=== PATIENT | female | born 1995 | race Caucasian/White ===

== ENCOUNTER 2017-03-12 03:14 | Emergency (ER) | payer BC, OTHER ==
[~2017-03-12 03:14] MED LIST: ETON1IMP2
[2017-03-12 03:18] VITALS: TEMP 37.3; Ht 167.6 cm
[2017-03-12] MEDS ORDERED: DEXAMETHASONE SOD INJ 10 MG/ML VIAL PO ONE (03:30)
[2017-03-12] MEDS ORDERED: IBUPROFEN 600 MG TAB PO STA (03:30)
[2017-03-12] MEDS ORDERED: PENI500T2 PO (03:40)
[2017-03-12] MEDS ORDERED: PENICILLIN V POTASSIUM 250 MG TAB PO ONE (03:45)
--- NOTE | 2017-03-12 03:48 | EMERGENCY ROOM VISIT NOTE ---
History First contact with patient: 03:23 Chief Complaint: THROAT PAIN/INJURY Stated Complaint: SEVERE PAIN SWALLOWING,TONGUE SWELLING,FEVER History of Present Illness The patient is a 21 year old female who presents to the Emergency Room with complaints of sore throat with fever for the past day. Tmax 101. Patient denies neck stiffness, dysphagia, headache, cough, congestion, abdominal pain, chest pain, dyspnea. Sister was sick a few weeks ago with mono. Patient works at a [employer]. Review of Systems See HPI for pertinent positives & negatives. A total of 10 systems reviewed and were otherwise negative. Past Medical/Surgical History Migraines Social History Smoking Status: Never Smoker Alcohol Use: none Drug Use: none Marital Status: single Housing Status: lives with family Occupation Status: employed Current/Historical Medications Miscellaneous Medications Etonogestrel (Nexplanon) Physical Exam Vital Signs Date Time Temp Pulse Resp B/P (MAP) Pulse Ox O2 Delivery O2 Flow Rate FiO2 03/12/17 03:18 37.3 96 18 124/80 98 Room Air Physical Exam VITALS: Vitals are noted on the nurse's note and reviewed by myself. Vital signs stable. GENERAL: Pleasant female, in no acute distress, nondiaphoretic, well-developed well-nourished. SKIN: The skin was without rashes, erythema, edema, or bruising. There is no tenting of the skin. Capillary reflex less than 2 seconds. HEAD: Normocephalic atraumatic. EARS: External auditory canals clear, tympanic membranes pearly sorto without erythema or effusion bilaterally. EYES: Pupils equal round and reactive to light and accommodation. Conjunctivae without injection, sclerae without icterus. Extraocular movements intact. NOSE: Patent, turbinates without inflammation or discharge. No sinus tenderness. MOUTH: Mucous membranes moist. Tonsils are enlarged. Pharynx with erythema and exudate. Uvula midline. Airway patent. Tongue does not deviate. No abscess appreciated NECK: Supple without nuchal rigidity. Submandibular lymphadenopathy. No thyromegaly. Cervical spine is nontender. No JVD. No meningeal signs HEART: Regular rate and rhythm without murmurs gallops or rubs. LUNGS: Clear to auscultation bilaterally without wheezes, rales or rhonchi. No dullness to percussion. No retractions or accessory muscle use. ABDOMEN: Positive bowel sounds x 4. Normal tympanic percussion. Soft, nontender, without masses or organomegaly. Swenson sign negative. No guarding or rebound tenderness. MUSCULOSKELETAL: No muscle atrophy, erythema, or edema noted. NEURO: Patient was alert and oriented to person place and time. Normal sensation to light and sharp touch. No focal neurological deficits. Medical Decision & Procedures ED Course Prior records/ancillary studies reviewed. Triage Nursing notes reviewed. Additional history obtained from mother. The patient's history was concerning for a sore throat. Differential diagnosis: Etiologies such as viral syndrome, tonsillitis, streptococcal pharyngitis, mononucleosis, peritonsillar abscess, retropharyngeal abscess, otitis, pneumonia , influenza, as well as others were entertained. ER treatment provided: Decadron, Motrin, penicillin On reassessment the patient felt better. Diagnostics interpreted by me: The labs revealed positive strep test This appears to be consistent with strep pharyngitis. Patient was started on antibiotics. She no signs of airway compromise. No signs of meningitis or abscess. She is well-appearing. She is tolerating fluids. She is speaking in full sentences. She was not drooling. She had no trismus. No signs of Jacques angina. Patient is advised take medications as directed and no work until 24 hours fever free. She is advised to return to the ER immediately for high fevers, lethargy, neck stiffness, dysphagia, worsening signs or symptoms or as needed. She is advised follow-up family care in a few days. By the evaluation outlined above emergent etiologies such as peritonsillar abscess, retropharyngeal abscess, otitis, pneumonia, meningitis, urinary tract infection , sepsis, bacteremia, as well as others were deemed relatively unlikely. The pt informed about the findings as listed above. All questions were answered and pleased with the treatment. Return instructions were outlined and the patient was discharged in stable condition. Outpatient prescription management: Pen SCAR Referral: The patient was referred back to their primary care physician for follow-up in 2 to 3 days for a recheck of the current condition. Medical Decision As above Medication Reconcilliation Current Medication List: was personally reviewed by me Blood Pressure Screening Patient's blood pressure: Normal blood pressure Impression Primary Impression: Strep pharyngitis Departure Information Referrals No Doctor, Assigned (PCP) Patient Instructions My [facility] [employer]
[2017-03-12 03:56] VITALS: BP 130/74; PULSE 84; O2SAT 99
== END 2017-03-12 03:57 | disposition home or self-care (01) ==
LOC: C.EDB 03:15
DX: J02.0 Streptococcal pharyngitis (principal)